=== PATIENT | male | born 1955 | race Two or more races ===

== ENCOUNTER 2017-09-20 20:14 | Inpatient (IN) | payer OTHER ==
[~2017-09-20] VITALS: Ht 170.2 cm; Wt 73.5 kg
[2017-09-20 20:19] VITALS: BP 165/103
[2017-09-20] MEDS ORDERED: NITROGLYCERIN 2% 1 GM PKT TP ONE (21:00)
[2017-09-20] MEDS ORDERED: NACL 0.9% 1,000 ML IV ONE (21:00)
[2017-09-20] MEDS ORDERED: KETOROLAC 30 MG/ML VIAL IVP ONE (21:00)
[2017-09-20 21:22] LABS: BASOPHILS # (AUTO) 0.1 K/uL (0.00-0.22); BASOPHILS % (AUTO) 1.5 % (0.0-2.0); EOSINOPHILS # (AUTO) 0.3 K/uL (0-0.4); EOSINOPHILS % (AUTO) 3.8 % (0.0-4.0); HEMATOCRIT 44.5 % (36-52); HEMOGLOBIN 14.7 g/dL (12.0-18.0); LYMPHOCYTES # (AUTO) 2.4 K/uL (2.0-11.5); LYMPHOCYTES % (AUTO) 35.5 % (20.5-51.1); MEAN CORPUSCULAR HEMOGLOBIN 30 pg (27-31); MEAN CORPUSCULAR HGB CONC 33 g/dL (33-37); MEAN CORPUSCULAR VOLUME 90 fL (80-94); MONOCYTES # (AUTO) 0.4 K/uL (0.8-1.0); MONOCYTES % (AUTO) 6.2 % (1.7-9.3); NEUTROPHILS # (AUTO) 3.5 K/uL (1.8-7.7); PLATELET COUNT (AUTO) 214 K/uL (140-450); RED BLOOD CELL COUNT(AUTO) 4.93 MIL/uL (4.20-6.10); RED CELL DISTRIBUTION WIDTH 12.6 % (11.6-13.7); WHITE BLOOD COUNT (AUTO) 6.7 K/uL (4.8-10.8)
[2017-09-20] MEDS ORDERED: MORPHINE SULFATE 2 MG/ML SYR IVP ONE (21:30)
[2017-09-20 21:37] LABS: PROTHROMBIN TIME 9.9 secs (10.8-13.4)
[2017-09-20 21:39] LABS: ALBUMIN 3.6 g/dL (3.4-5.0); ANION GAP 13.6 (8-16); CREATININE 0.9 mg/dL (0.7-1.3); POTASSIUM 3.6 mmol/L (3.5-5.1); TOTAL BILIRUBIN 0.2 mg/dL (0.0-1.0)
[2017-09-20] MEDS ORDERED: ASPIRIN 81 MG TAB.CHEW PO ONE (21:55)
[2017-09-20] MEDS ORDERED: MORPHINE SULFATE 4 MG/ML SYR ONE (22:21)
[2017-09-20] MEDS ORDERED: ACETAMINOPHEN 325 MG TAB PO PRN (22:35)
[2017-09-20] MEDS ORDERED: ONDANSETRON 4 MG/2 ML VIAL IVP PRN (22:35)
[2017-09-20] MEDS ORDERED: HYDROcodone/APAP 7.5/325 MG 1 TAB PO PRN (22:35)
[2017-09-20] MEDS: LISINOPRIL 5 MG TAB PO SCH (22:40)
[2017-09-20 22:45] LABS: APPEARANCE,URINE CLEAR (CLEAR); BILIRUBIN,URINE NEGATIVE (NEGATIVE); BLOOD, URINE NEGATIVE (NEGATIVE); COLOR,URINE YELLOW (YELLOW); LEUKOCYTE ESTERASE ,URINE NEGATIVE (NEGATIVE); NITRITE, URINE NEGATIVE (NEGATIVE); PH,URINE 6.5 (5.0-9.0); UGLUCOSE NEGATIVE (NEGATIVE)
[2017-09-20 22:52] LABS: BARBITURATE, URINE NEG. ng/ml (NEG <=200); BENZODIAZEPINE, URINE NEG. ng/mL (NEG <=200); CANNABINOID, URINE NEG. ng/mL (NEG <=50); COCAINE, URINE NEG. ng/mL (NEG <=300); OPIATE, URINE NEG. ng/mL (NEG <=2000); PHENCYCLIDINE SCREEN,URINE NEG. ng/mL (NEG <=25)
[2017-09-20 23:00] VITALS: BP 135/84
[2017-09-20 23:10] LABS: FREE T4 (FREE THYROXINE) 1.02 ng/dL (0.76-1.46); MAGNESIUM 1.9 mg/dL (1.8-2.4); PHOSPHORUS 3.7 mg/dL (2.5-4.9); THYROID STIMULATING HORMONE 2.87 uIU/mL (0.34-3.74)
[2017-09-20] MEDS: METOPROLOL 25 MG TAB PO SCH (23:40)
[2017-09-20] MEDS ORDERED: METOPROLOL 25 MG TAB ONE (23:40)
[2017-09-20] MEDS ORDERED: LISINOPRIL 10 MG TAB ONE (23:42)
[2017-09-21 04:00] VITALS: BP 104/62
[2017-09-21 07:01] LABS: ANION GAP 10.6 (8-16); CARBON DIOXIDE 29.5 mmol/L (21-32); HEMATOCRIT 38.2 % (36-52); MEAN CORPUSCULAR HEMOGLOBIN 31 pg (27-31); MEAN CORPUSCULAR HGB CONC 34 g/dL (33-37); MEAN CORPUSCULAR VOLUME 91 fL (80-94); PLATELET COUNT (AUTO) 184 K/uL (140-450); POTASSIUM 5.1 mmol/L (3.5-5.1); RED CELL DISTRIBUTION WIDTH 12.9 % (11.6-13.7); WHITE BLOOD COUNT (AUTO) 6.4 K/uL (4.8-10.8)
[2017-09-21 07:53] VITALS: BP 115/70
[2017-09-21 08:05] LABS: LYMPHOCYTES % (MANUAL) 36 % (20-46); MONOCYTES % (MANUAL) 6 % (5-12)
[2017-09-21] MEDS: LISINOPRIL 5 MG TAB PO SCH (08:40)
[2017-09-21] MEDS: METOPROLOL 25 MG TAB PO SCH (08:42)
[2017-09-21] MEDS ORDERED: ATORVASTATIN 20 MG TAB PO SCH (09:00)
[2017-09-21] MEDS ORDERED: ASPIRIN 325 MG TAB PO SCH (09:00)
[2017-09-21] MEDS ORDERED: DOCUSATE SODIUM 100 MG GELCAP PO SCH (09:00)
[2017-09-21] MEDS ORDERED: PANTOPRAZOLE 40 MG TABEC PO SCH (09:00)
[2017-09-21 11:14] VITALS: BP 115/70
[2017-09-21] MEDS ORDERED: ASPI81CT95 PO (11:43)
[2017-09-21] MEDS ORDERED: ATOR40TA PO (11:43)
[2017-09-21 11:48] VITALS: BP 124/74
== END 2017-09-21 13:20 | disposition home or self-care (01) | DRG 392 ==
LOC: MED 20:14 → MTU 22:36
PROVIDERS: ADMIT Family Medicine; ATTEND Family Medicine
DX: K21.9 Gastro-esophageal reflux disease without esophagitis (principal); E78.2 Mixed hyperlipidemia; Z87.11 Personal history of peptic ulcer disease
CPT/HCPCS: 36415; 71010; 74020; 80048; 80053; 80305; 81003; 82150; 83036; 83690; 83735; 83880; 84100; 84439; 84443; 84484; 85025; 85379; 85610; 85730; 87081; 93005; 96361; 96374; 96375; 99285; J1885; J2270; J7030